=== PATIENT | female | born 1955 | race Caucasian/White ===

== ENCOUNTER → 2024-04-26 13:56 | Outpatient (REF) | payer MEDICARE, BC, SELFPAY | LOC: RCS 13:56 | PROVIDERS: ATTENDING PHYSICIAN Nurse Practitioner; FAMILY PHYSICIAN Student in an Organized Health Care Education/Training Program | DX: Z98.890 Other specified postprocedural states (principal) | CPT/HCPCS: 93306 ==

== ENCOUNTER → 2024-10-15 10:01 | Outpatient (REF) | payer MEDICARE, BC, SELFPAY | LOC: WDC 10:01 | PROVIDERS: ATTENDING PHYSICIAN Obstetrics & Gynecology Gynecology; FAMILY PHYSICIAN Student in an Organized Health Care Education/Training Program | DX: N64.59 Other signs and symptoms in breast (principal); R21 Rash and other nonspecific skin eruption | CPT/HCPCS: 76642; 77062; 77066 ==

== ENCOUNTER → 2025-02-04 11:12 | Outpatient (REF) | payer MEDICARE, BC, SELFPAY | LOC: RCS 11:12 | PROVIDERS: ATTENDING PHYSICIAN Internal Medicine Cardiovascular Disease; FAMILY PHYSICIAN Student in an Organized Health Care Education/Training Program | DX: I48.0 Paroxysmal atrial fibrillation (principal); Z98.890 Other specified postprocedural states | CPT/HCPCS: 93306 ==

== ENCOUNTER → 2025-04-09 14:49 | Outpatient (REF) | payer MEDICARE, BC, SELFPAY | LOC: REG 14:49 | PROVIDERS: ATTENDING PHYSICIAN Student in an Organized Health Care Education/Training Program | DX: K52.9 Noninfective gastroenteritis and colitis, unspecified (principal) | CPT/HCPCS: 36415; 82784; 83013; 83516; 86231 ==

== ENCOUNTER → 2025-04-11 12:55 | Outpatient (REF) | payer MEDICARE, BC, SELFPAY | LOC: HWRAD 12:55 | PROVIDERS: ATTENDING PHYSICIAN Student in an Organized Health Care Education/Training Program; REFERRING PHYSICIAN Internal Medicine Gastroenterology | DX: K52.9 Noninfective gastroenteritis and colitis, unspecified (principal); R10.30 Lower abdominal pain, unspecified | CPT/HCPCS: 76700 ==